=== PATIENT | male | born 1950 | race Hispanic/Latino ===

== ENCOUNTER 2018-05-10 05:53 | Observation (INO) | payer MEDICARE ==
[2018-05-06 13:11] LABS: BASOPHILS % (AUTO) 0.9 % (0.0-5.0); EOSINOPHILS % (AUTO) 5.4 % (0.0-8.0); HEMATOCRIT 38.1 % (42-54); LYMPHOCYTES % (AUTO) 25.2 % (21.0-51.0); MEAN CORPUSCULAR HEMOGLOBIN 28.4 pg (27.0-33.0); MEAN CORPUSCULAR HGB CONC 33.2 g/dL (32.0-36.0); MEAN CORPUSCULAR VOLUME 85.8 fL (79-99); MONOCYTES % (AUTO) 7.3 % (3.0-13.0); NEUTROPHILS % (AUTO) 61.2 % (40.0-77.0); NUCLEATED RED BLOOD CELLS 0.1 % (0.0-0.19); PLATELET COUNT (AUTO) 335 K/uL (130-400); RED BLOOD CELL COUNT(AUTO) 4.44 MIL/uL (4.50-6.20); RED CELL DISTRIBUTION WIDTH 14.5 % (11.0-15.5); WHITE BLOOD COUNT (AUTO) 8.9 K/uL (4.8-10.8)
[2018-05-06 13:25] LABS: INR 0.97 (0.85-1.15); PARTIAL THROMBOPLASTIN TIME 30.6 SEC (26.3-35.5); PROTHROMBIN TIME 10.2 SEC (9.6-11.6)
[2018-05-06 13:28] LABS: CREATININE 0.9 mg/dL (0.5-1.5); POTASSIUM 4.7 mmol/L (3.5-5.1)
[2018-05-06 14:02] LABS: APPEARANCE,URINE Clear (CLEAR); BILIRUBIN,URINE Small (NEGATIVE); COLOR,URINE Dark Yellow (YELLOW); GLUCOSE, URINE (UA) 500 mg/dL (NEGATIVE); KETONES,URINE Trace mg/dL (NEGATIVE); LEUKOCYTE ESTERASE ,URINE Negative (NEGATIVE); NITRATE,URINE Negative (NEGATIVE); OCCULT BLOOD,URINE Negative (NEGATIVE); PH,URINE 5.5 (5.0-8.0); PROTEIN,URINE POS 1+ (NEGATIVE)
[2018-05-06 14:33] LABS: BACTERIA,URINE Few /HPF (None Seen); MUCUS,URINE Moderate LPF (None Seen); RBC,URINE 0-1 /HPF (0-1); SQUAMOUS EPITHELIAL CELL,UR Rare /HPF (0-2); WBC,URINE 0-1 /HPF (0-1)
[2018-05-10] VITALS (13 sets, daily range): BP systolic 105–128; BP diastolic 56–70
[~2018-05-10] VITALS: Ht 162.6 cm; Wt 60.8 kg
[~2018-05-10 05:53] MED LIST: SODIUM CHLORIDE 0.9% 500ML 500 ML IV SCH
[2018-05-10] MEDS ORDERED: SODIUM CHLORIDE 0.9% 1000ML 1,000 ML IV ONE (06:04)
[2018-05-10] MEDS ORDERED: SIMV40TA5 PO (06:34)
[2018-05-10] MEDS ORDERED: TRAM50TA4 PO (06:34)
[2018-05-10] MEDS ORDERED: ASPI-555 PO (06:34)
[2018-05-10] MEDS ORDERED: METO25TA6 PO (06:34)
[2018-05-10] MEDS ORDERED: INS7030 SQ (06:34)
[2018-05-10] MEDS ORDERED: INSLAN SQ (06:34)
[2018-05-10] MEDS ORDERED: LISI2.5T2 PO (06:34)
[2018-05-10] MEDS ORDERED: CLOP75TA14 PO (06:34)
[2018-05-10] MEDS ORDERED: GABA-529 PO (06:34)
[2018-05-10] MEDS ORDERED: SODIUM BICARB 50MEQ 50ML VIAL ONE (07:09)
[2018-05-10] MEDS ORDERED: HEPARIN SODIUM 1000UNIT/ML 10ML VIAL ONE (07:09)
[2018-05-10] MEDS ORDERED: NITROGLYCERIN 5 MG/ML 10 ML VIAL IV ONE (07:09)
[2018-05-10] MEDS ORDERED: LIDOCAINE HCL-MPF 2% 5ML VIAL ONE (07:09)
[2018-05-10] MEDS ORDERED: IOHEXOL 350 MG/ML 100ML INFUS..BTL IV ONE (07:09)
[2018-05-10] MEDS ORDERED: IOHEXOL-350 50ML VIAL IV ONE (07:09)
--- NOTE | 2018-05-10 07:10 | NUR ---
HR PT DIDN'T BRING HOME MEDS OR LIFE VEST , METOPROLOL NOT TAKEN THIS AM, HR 98-120 THIS AM,FISH CURTIS INFORMED, NO FURTHER ORDERS GIVEN AT THIS TIME.
--- NOTE | 2018-05-10 07:20 | NUR ---
PROCEDURE PT TAKEN TO REPAIR ARMATURE WINDER FOR HEART CATH VIA BED, PT AWAKE AND ALERT, NO DISTRESS NOTED. PT SPOUSE AT BEDSIDE
[2018-05-10] MEDS ORDERED: MEPERIDINE-PF 25 MG/ML SYG ONE ×2 (07:26→07:47)
[2018-05-10] MEDS ORDERED: MIDAZOLAM HCL 1 MG/ML 2ML VIAL ONE ×2 (07:26→07:46)
[2018-05-10] MEDS: SODIUM CHLORIDE 0.9% 1000ML 1,000 ML IV SCH ×2 (08:27→22:15)
[2018-05-10] MEDS ORDERED: ACETAMINOPHEN 325 MG TAB PO PRN ×2 (08:30→20:30)
[2018-05-10] MEDS ORDERED: GLUCAGON 1MG KIT 1 MG ML IM PRN (08:30)
[2018-05-10] MEDS ORDERED: DEXTROSE 50%-WATER 50 ML DISP.SYRIN IV PRN (08:30)
--- NOTE | 2018-05-10 08:55 | NUR ---
PROCEDURE received pt from label maker, s/p left heart cath, mid RCA ptca /stent. right groin dressing dry and intact , see post label maker assessment. pt awake and alert in bed, vs stable on arrival , pt instructed to keep bedrest until instructed by nursing staff to get out of bed, to call nurse for any assistance needed. pt spouse at bedside at this time.
[2018-05-10] MEDS: INSULIN HUMULIN 70/30 100 UNIT/ML 3ML SQ SCH ×2 (09:00→21:00)
[2018-05-10] MEDS: INSULIN GLARGINE 100 UNITS/ML 10 ML VIAL SQ SCH (09:00)
[2018-05-10] MEDS: ASPIRIN 81 MG EC TAB PO SCH (09:59)
[2018-05-10] MEDS: INSULIN HUMULIN R 100 UNIT/ML 3ML SQ SCH ×3 (11:30→21:00)
[2018-05-10] MEDS: METOPROLOL TARTRATE 25 MG TAB PO SCH ×2 (12:09→21:00)
[2018-05-10] MEDS: LISINOPRIL 2.5 MG TABLET PO SCH (12:09)
[2018-05-10] MEDS: CLOPIDOGREL BISULFATE 75 MG TAB PO SCH (12:09)
--- NOTE | 2018-05-10 12:34 | NUR ---
report report given to Sarah Estrada at Telemetry floor,
--- NOTE | 2018-05-10 12:45 | NUR ---
transfer pt transfered to room 221 via bed, pt continues to be bedrest , right groin dressing dry and intact, pedal pulse present. all clothes , belongings also taken with patient. spouse at bedside escorted to room with patient. vs stable before transfer
[2018-05-10] MEDS: TRAMADOL HCL 50 MG TABLET PO PRN ×2 (14:04→23:01)
[2018-05-10] MEDS ORDERED: MORPHINE SULFATE 2 MG/ML 1ML SYG IV PRN (20:30)
[2018-05-10] MEDS ORDERED: ONDANSETRON HCL 4 MG/2 ML VIAL IV PRN (20:30)
[2018-05-10] MEDS ORDERED: GABAPENTIN 100 MG CAPSULE PO SCH (21:00)
[2018-05-10] MEDS ORDERED: SIMVASTATIN 20 MG TABLET PO SCH (21:00)
[2018-05-10 21:35] LABS: BASOPHILS % (AUTO) 0.9 % (0.0-5.0); EOSINOPHILS % (AUTO) 3.6 % (0.0-8.0); HEMATOCRIT 31.3 % (42-54); LYMPHOCYTES % (AUTO) 33.3 % (21.0-51.0); MEAN CORPUSCULAR HEMOGLOBIN 28.6 pg (27.0-33.0); MEAN CORPUSCULAR HGB CONC 33.5 g/dL (32.0-36.0); MEAN CORPUSCULAR VOLUME 85.3 fL (79-99); MONOCYTES % (AUTO) 8.2 % (3.0-13.0); PLATELET COUNT (AUTO) 263 K/uL (130-400); RED BLOOD CELL COUNT(AUTO) 3.66 MIL/uL (4.50-6.20); RED CELL DISTRIBUTION WIDTH 14.6 % (11.0-15.5); WHITE BLOOD COUNT (AUTO) 8.5 K/uL (4.8-10.8)
[2018-05-10 21:57] LABS: BILIRUBIN,TOTAL 0.3 mg/dL (0.2-1.0); CREATININE 0.8 mg/dL (0.5-1.5); POTASSIUM 4.1 mmol/L (3.5-5.1); TOTAL PROTEIN, SERUM 6.2 g/dL (6.0-8.3)
[2018-05-10] MEDS: FAMOTIDINE/PF 20 MG/2 ML VIAL IV SCH (22:07)
[2018-05-11 04:00] VITALS: BP 105/58
[2018-05-11] MEDS: INSULIN HUMULIN R 100 UNIT/ML 3ML SQ SCH (04:37)
[2018-05-11 04:56] LABS: HEMATOCRIT 31.3 % (42-54); MEAN CORPUSCULAR HEMOGLOBIN 29.5 pg (27.0-33.0); MEAN CORPUSCULAR HGB CONC 34.4 g/dL (32.0-36.0); MEAN CORPUSCULAR VOLUME 85.7 fL (79-99); PLATELET COUNT (AUTO) 282 K/uL (130-400); RED BLOOD CELL COUNT(AUTO) 3.65 MIL/uL (4.50-6.20); RED CELL DISTRIBUTION WIDTH 14.6 % (11.0-15.5); WHITE BLOOD COUNT (AUTO) 8.1 K/uL (4.8-10.8)
[2018-05-11 05:01] LABS: CREATININE 0.7 mg/dL (0.5-1.5); POTASSIUM 4.3 mmol/L (3.5-5.1)
[2018-05-11 07:28] VITALS: BP 112/69
[2018-05-11] MEDS: METOPROLOL TARTRATE 25 MG TAB PO SCH (07:44)
[2018-05-11] MEDS: CLOPIDOGREL BISULFATE 75 MG TAB PO SCH (07:44)
[2018-05-11] MEDS: ASPIRIN 81 MG EC TAB PO SCH (07:44)
[2018-05-11] MEDS: INSULIN GLARGINE 100 UNITS/ML 10 ML VIAL SQ SCH (07:45)
[2018-05-11] MEDS: LISINOPRIL 2.5 MG TABLET PO SCH (07:45)
[2018-05-11] MEDS: FAMOTIDINE/PF 20 MG/2 ML VIAL IV SCH (07:45)
[2018-05-11] MEDS: INSULIN HUMULIN 70/30 100 UNIT/ML 3ML SQ SCH (07:46)
--- NOTE | 2018-05-11 08:00 | NUR ---
ASSESSMENT PT IS AAOX4 DENIES CP DENIES SOB DENIES NV NO COMPLAINTS RIGHT GROIN WITH DRESSING PLACE, CLEAN DRY AND INTACT. AT BEDSIDE, AND ALSO EXITING ROOMS GOING INTO OTHER PATIENTS ROOMS. INSTRUCTED OF PATIENT TO GO BACK TO HUSBANDS ROOM. SAYS HIS HAS DEMENTIA.
--- NOTE | 2018-05-11 10:13 | NUR ---
DISCHARGE PATIENT VERBALIZES DC INSTRUCTIONS UNDERSTANDING AGREES TO TAKE MEDS ORDERED AND FOLLOW UP WITH DR REEVES OUTPATIENT. PIV REMOVED CATH TIP INTACT, TELE PACK REMOVED. ALL QUESTIONS ANSWERED.
== END 2018-05-11 10:30 | disposition home or self-care (01) ==
LOC: DAH 05:53 → DAHIP 05:54 → 2DH 13:01
PROVIDERS: ADMIT Internal Medicine; ATTEND Internal Medicine
DX: I25.110 Atherosclerotic heart disease of native coronary artery with unstable angina pectoris (principal); E11.40 Type 2 diabetes mellitus with diabetic neuropathy, unspecified; E11.59 Type 2 diabetes mellitus with other circulatory complications; E11.69 Type 2 diabetes mellitus with other specified complication; E78.2 Mixed hyperlipidemia; I11.9 Hypertensive heart disease without heart failure; I25.2 Old myocardial infarction; I25.3 Aneurysm of heart; I25.5 Ischemic cardiomyopathy; Z91.19 Patient's noncompliance with other medical treatment and regimen; Z79.4 Long term (current) use of insulin; Z83.3 Family history of diabetes mellitus; Z79.899 Other long term (current) drug therapy; Z98.49 Cataract extraction status, unspecified eye; Z79.01 Long term (current) use of anticoagulants
CPT/HCPCS: 36415 ×3; 71045; 80048 ×2; 80053; 81001; 82948 ×5; 85025 ×2; 85027; 85610; 85730; 93005; 93458; 96361 ×2; 96372; 96374; 96376; A4600; A4606; C1725; C1760; C1769; C1874; C1887; C1894; C9600; G0378 ×29; J1644 ×2; J1815; J2175 ×2; J2250 ×2; J3490 ×5; J7030 ×2; Q9965; Q9967 ×2; 99156; 99157

== ENCOUNTER → 2018-08-08 | Outpatient (CLI) | payer MEDICARE ==
[~2018-08-08] MED LIST changes: +ASPI-555 PO; +CLOP75TA14 PO; +GABA-529 PO; +INS7030 SQ; +INSLAN SQ; +LISI2.5T2 PO; +METO25TA6 PO; +SIMV40TA5 PO; -SODIUM CHLORIDE 0.9% 500ML 500 ML IV SCH; +TRAM50TA4 PO
== END | disposition home or self-care (01) ==
LOC: SHCH 11:15
PROVIDERS: ATTEND Internal Medicine Cardiovascular Disease
DX: I10 Essential (primary) hypertension (principal)
CPT/HCPCS: 93306

== ENCOUNTER 2018-09-14 08:11 | Observation (INO) | payer MEDICARE ==
[2018-09-13 11:10] VITALS: BP 107/57
[2018-09-13 11:36] LABS: BASOPHILS % (AUTO) 0.9 % (0.0-5.0); EOSINOPHILS % (AUTO) 1.9 % (0.0-8.0); HEMATOCRIT 35.6 % (42-54); LYMPHOCYTES % (AUTO) 28.1 % (21.0-51.0); MEAN CORPUSCULAR HEMOGLOBIN 29.2 pg (27.0-33.0); MEAN CORPUSCULAR HGB CONC 33.5 g/dL (32.0-36.0); MEAN CORPUSCULAR VOLUME 87.2 fL (79-99); NEUTROPHILS % (AUTO) 62.1 % (40.0-77.0); PLATELET COUNT (AUTO) 313 K/uL (130-400); RED BLOOD CELL COUNT(AUTO) 4.09 MIL/uL (4.50-6.20); RED CELL DISTRIBUTION WIDTH 13.5 % (11.0-15.5); WHITE BLOOD COUNT (AUTO) 8.2 K/uL (4.8-10.8)
[2018-09-13 11:43] LABS: INR 0.95 (0.85-1.15); PARTIAL THROMBOPLASTIN TIME 30.7 SEC (26.3-35.5)
[2018-09-13 11:50] LABS: POTASSIUM 4.9 mmol/L (3.5-5.1)
[2018-09-14] VITALS (10 sets, daily range): BP systolic 110–168; BP diastolic 56–112
[~2018-09-14] VITALS: Ht 162.6 cm; Wt 59.1 kg
[~2018-09-14 08:11] MED LIST changes: +NITROGLYCERIN 1GM/1 INCH PACKET TD SCH
--- NOTE | 2018-09-14 08:20 | NUR ---
INTEGUMENTARY MULTIPLE AREAS OF BRUISING TO UPPER EXTREMITIES FROM BLOOD THINNERS.
--- NOTE | 2018-09-14 08:20 | NUR ---
PRE-PROCEDURE RECEIVED FROM HOME VIA WALKING FOR SCHEDULED AICD PLACEMENT. AWAKE IN NO ACUTE DISTRESS, DENIES PAIN. CONNECTED TO CONTINUOUS CARDIOPULMONARY MONITORING. BED IN LOWEST POSITION, SIDE RAILS UP X2, CALL LIGHT W/IN REACH. PT IS ACCOMPANIED BY ( HAS DEMENTIA).
[2018-09-14] MEDS ORDERED: RIVA20TA PO (08:41)
[2018-09-14] MEDS: SODIUM CHLORIDE 0.9% 1000ML 1,000 ML IV SCH ×2 (10:07→17:07)
--- NOTE | 2018-09-14 14:30 | NUR ---
PROCEDURE PT TRANSFERRED TO LEGAL REFEREE BY MARYLIN DIAZ RN.
[2018-09-14] MEDS ORDERED: CEFAZOLIN SODIUM 1 GM VIAL ONE (14:46)
[2018-09-14] MEDS ORDERED: LIDOCAINE HCL 1% MDV 50ML VIAL ONE (14:47)
[2018-09-14] MEDS ORDERED: MIDAZOLAM HCL 1 MG/ML 2ML VIAL ONE ×3 (14:47→15:50)
[2018-09-14] MEDS ORDERED: MEPERIDINE-PF 25 MG/ML SYG ONE ×3 (14:47→15:51)
[2018-09-14] MEDS ORDERED: BUPIVACAINE/PF 0.25% 30ML VIAL IJ ONE (14:48)
[2018-09-14] MEDS ORDERED: OCTYL 2-CYANOACRYLATE 1 EACH TP ONE (15:23)
[2018-09-14] MEDS ORDERED: GLUCAGON 1MG KIT 1 MG ML IM PRN (16:15)
[2018-09-14] MEDS ORDERED: DEXTROSE 50%-WATER 50 ML DISP.SYRIN IV PRN (16:15)
[2018-09-14] MEDS: INSULIN HUMULIN R 100 UNIT/ML 3ML SQ SCH ×2 (16:30→20:36)
[2018-09-14] MEDS: ACETAMINOPHEN 325 MG TAB PO PRN ×2 (17:15→23:12)
[2018-09-14] MEDS ORDERED: KETOROLAC TROMETHAMINE 30MG/ML IV PRN (17:45)
--- NOTE | 2018-09-14 20:14 | NUR ---
ASSESSMENT PT RESTING IN BED. PT AAOX4. PT ORIENTED TO CALLBELL. LEFT ARM IN ARM SLING. ASSESSMENT COMPLETED, SEE FLOW SHEET. PT'S AT BEDSIDE REQUIRING 1:1, PT STATED THERE WAS NO ONE TO LOOK AFTER HIS
[2018-09-14] MEDS ORDERED: SIMVASTATIN 20 MG TABLET PO SCH (21:00)
[2018-09-14] MEDS: METOPROLOL TARTRATE 25 MG TAB PO SCH (21:51)
[2018-09-14] MEDS: INSULIN HUMULIN 70/30 100 UNIT/ML 3ML SQ SCH (21:56)
[2018-09-14] MEDS: CEFAZOLIN SODIUM 1 GM VIAL IVP SCH (23:13)
--- NOTE | 2018-09-14 23:49 | NUR ---
REPORT REPORT GIVEN TO ART RN.
[2018-09-15 04:00] VITALS: BP 118/62
[2018-09-15] MEDS: INSULIN HUMULIN R 100 UNIT/ML 3ML SQ SCH ×2 (05:48→11:06)
[2018-09-15] MEDS: CEFAZOLIN SODIUM 1 GM VIAL IVP SCH (05:48)
[2018-09-15 07:25] VITALS: BP 126/60
[2018-09-15] MEDS: METOPROLOL TARTRATE 25 MG TAB PO SCH (08:59)
[2018-09-15] MEDS ORDERED: INSULIN GLARGINE 100 UNITS/ML 10 ML VIAL SQ SCH (09:00)
[2018-09-15] MEDS ORDERED: LISINOPRIL 2.5 MG TABLET PO SCH (09:00)
[2018-09-15] MEDS ORDERED: CLOPIDOGREL BISULFATE 75 MG TAB PO SCH (09:00)
[2018-09-15] MEDS: INSULIN HUMULIN 70/30 100 UNIT/ML 3ML SQ SCH (09:00)
[2018-09-15] MEDS ORDERED: DOXY100C2 PO (09:08)
--- NOTE | 2018-09-15 10:30 | NUR ---
LOG CUT OFF [facility] FOR [facility] . On previous visits pt was offered services for thru [facility] (provider and Day Care). Pt refused everything offered. On one visit pt called brother in law and he came and picked up . Pt is aware of hospital liability for wive's presences but refuses to make arrangements for during his admissions..
[2018-09-15 11:00] VITALS: BP 117/56
== END 2018-09-15 12:15 | disposition home or self-care (01) ==
LOC: DAH 08:11 → DAHIP 08:12 → 2DH 17:07
PROVIDERS: ADMIT Internal Medicine; ATTEND Internal Medicine
DX: I25.5 Ischemic cardiomyopathy (principal); E11.9 Type 2 diabetes mellitus without complications; E78.5 Hyperlipidemia, unspecified; I11.0 Hypertensive heart disease with heart failure; I50.43 Acute on chronic combined systolic (congestive) and diastolic (congestive) heart failure; Z95.5 Presence of coronary angioplasty implant and graft; Z98.41 Cataract extraction status, right eye; Z98.42 Cataract extraction status, left eye; Z79.899 Other long term (current) drug therapy
CPT/HCPCS: 33249; 36415; 71046; 80048; 82948 ×6; 85025; 85610; 85730; 93005; 96372 ×2; 96374; 96375; A4606; C1721; C1894; C1895 ×2; G0378 ×20; J0690 ×3; J1815 ×2; J2175 ×3; J2250 ×3; J3490 ×2; J7030; J7070; 99156; 99157

== ENCOUNTER → 2019-07-20 | Outpatient (CLI) | payer MEDICARE ==
[~2019-07-20] MED LIST changes: -ASPI-555 PO; +DOXY100C2 PO; -GABA-529 PO; -NITROGLYCERIN 1GM/1 INCH PACKET TD SCH; +RIVA20TA PO; +SIMV-46 PO; -SIMV40TA5 PO; -TRAM50TA4 PO
== END | disposition home or self-care (01) ==
LOC: SHCH 08:30
PROVIDERS: ATTEND Internal Medicine Cardiovascular Disease
DX: I10 Essential (primary) hypertension (principal)
CPT/HCPCS: 93306

== ENCOUNTER 2022-07-14 08:47 | Emergency (ER) | payer MEDICARE ==
[~2022-07-14] VITALS: Ht 162.6 cm; Wt 68.0 kg
[~2022-07-14 08:47] MED LIST changes: +CLOP-31 PO; -CLOP75TA14 PO; -DOXY100C2 PO; +DOXY100C5 PO; +LISI2.5T13 PO; -LISI2.5T2 PO
[2022-07-14 08:52] VITALS: BP 167/77
[2022-07-14] MEDS ORDERED: HYDR25CA PO (09:15)
[2022-07-14] MEDS ORDERED: ELIM560C TP (09:15)
[2022-07-14] MEDS ORDERED: DEXAMETHASONE SOD PHOSPHATE 4 MG/ML 1ML VIAL IM ONE (09:30)
== END 2022-07-14 10:01 | disposition home or self-care (01) ==
LOC: EDH 08:47
DX: B86 Scabies (principal); R21 Rash and other nonspecific skin eruption; E11.9 Type 2 diabetes mellitus without complications; E78.00 Pure hypercholesterolemia, unspecified; I10 Essential (primary) hypertension; Z79.01 Long term (current) use of anticoagulants; Z79.4 Long term (current) use of insulin; Z79.899 Other long term (current) drug therapy; Z95.5 Presence of coronary angioplasty implant and graft; Z95.810 Presence of automatic (implantable) cardiac defibrillator
CPT/HCPCS: 99283; 96372; J1100

== ENCOUNTER 2022-09-01 09:00 | Emergency (ER) | payer MEDICARE ==
[~2022-09-01] VITALS: Ht 162.6 cm; Wt 68.0 kg
[~2022-09-01 09:00] MED LIST changes: +ELIM560C TP; +HYDR25CA PO
[2022-09-01] MEDS ORDERED: DEXAMETHASONE SOD PHOSPHATE 4 MG/ML 1ML VIAL IVP ONE (09:30)
[2022-09-01] MEDS ORDERED: DiphenhydrAMINE HCL 50 MG/ML VIAL IV ONE (09:30)
[2022-09-01] MEDS ORDERED: FAMOTIDINE 20MG VIAL IV ONE (09:30)
[2022-09-01] MEDS ORDERED: 0.9%NACL 1000ML 1,000 ML IV ONE (09:30)
[2022-09-01 09:48] LABS: BASOPHILS % (AUTO) 0.3 % (0.0-5.0); EOSINOPHILS % (AUTO) 6.6 % (0.0-8.0); HEMATOCRIT 34.6 % (42-54); LYMPHOCYTES % (AUTO) 23.1 % (21.0-51.0); MEAN CORPUSCULAR HEMOGLOBIN 28.6 pg (27.0-33.0); MEAN CORPUSCULAR HGB CONC 32.9 g/dL (32.0-36.0); MEAN CORPUSCULAR VOLUME 86.9 fL (79-99); MONOCYTES % (AUTO) 6.9 % (3.0-13.0); NEUTROPHILS % (AUTO) 62.9 % (40.0-77.0); PLATELET COUNT (AUTO) 264 K/uL (130-400); RED BLOOD CELL COUNT(AUTO) 3.98 MIL/uL (4.50-6.20); WHITE BLOOD COUNT (AUTO) 8.6 K/uL (4.8-10.8)
[2022-09-01 10:04] LABS: ALBUMIN 3.4 g/dL (3.5-5.0); CREATININE 1.1 mg/dL (0.5-1.5); POTASSIUM 4.1 mmol/L (3.5-5.1); TOTAL PROTEIN, SERUM 7.3 g/dL (6.0-8.3)
[2022-09-01] MEDS ORDERED: IOHEXOL-350 75 ML VIAL IV ONE (10:10)
[2022-09-01 11:07] VITALS: BP 166/65
[2022-09-01] MEDS ORDERED: CETI10TA57 PO ×2 (11:22→11:31)
[2022-09-01] MEDS ORDERED: FAMO20TA8 PO (11:22)
[2022-09-01] MEDS ORDERED: PRED50TA2 PO ×2 (11:22→11:31)
== END 2022-09-01 11:30 | disposition home or self-care (01) ==
LOC: EDH 09:00
DX: L29.9 Pruritus, unspecified (principal); R21 Rash and other nonspecific skin eruption; R10.9 Unspecified abdominal pain; I10 Essential (primary) hypertension; E11.9 Type 2 diabetes mellitus without complications; E78.00 Pure hypercholesterolemia, unspecified; Z20.822 Contact with and (suspected) exposure to COVID-19; Z79.52 Long term (current) use of systemic steroids; Z79.899 Other long term (current) drug therapy; Z95.5 Presence of coronary angioplasty implant and graft; Z95.810 Presence of automatic (implantable) cardiac defibrillator
CPT/HCPCS: 99285; 80053; 85025; 87880; 87804 ×2; 83605; 36415; 87635; 74177; 96374; 96361; 96375; J1100; C9803; J1200; J3490; J7030; Q9967

== ENCOUNTER 2023-10-13 11:04 | Emergency (ER) | payer MEDICARE ==
[~2023-10-13] VITALS: Ht 162.6 cm; Wt 68.0 kg
[~2023-10-13 11:04] MED LIST changes: +CETI10TA57 PO; +FAMO20TA8 PO; +PRED50TA2 PO
[2023-10-13 14:23] LABS: APPEARANCE,URINE TURBID (CLEAR); BILIRUBIN,URINE NEGATIVE (NEGATIVE); GLUCOSE, URINE (UA) >=1000 mg/dL (NEGATIVE); KETONES,URINE NEGATIVE (NEGATIVE); LEUKOCYTE ESTERASE ,URINE TRACE Leu/uL (NEGATIVE); NITRATE,URINE NEGATIVE (NEGATIVE); OCCULT BLOOD,URINE LARGE (NEGATIVE); PROTEIN,URINE 100 mg/dL (NEGATIVE); UROBILINOGEN,URINE 0.2 mg/dL (0.2-1.0)
[2023-10-13 14:31] LABS: ADD UA MICROSCOPIC YES; COLOR,URINE RED (YELLOW)
[2023-10-13 14:41] LABS: RBC,URINE TNTC /HPF (0-1)
[2023-10-13 14:42] LABS: BACTERIA,URINE Few /HPF (None Seen); SQUAMOUS EPITHELIAL CELL,UR Few /HPF (0-2); WBC,URINE 26-50 /HPF (0-1)
[2023-10-13] MEDS ORDERED: AMOX1TAB16 PO (15:07)
[2023-10-13] MEDS: AMOX/CLAV 875/125MG TAB PO ONE (15:39)
[2023-10-13 15:40] VITALS: BP 148/70; PULSE 80; RESP 18; O2SAT 98
== END 2023-10-13 15:47 | disposition home or self-care (01) ==
LOC: EDH 11:04
DX: N30.01 Acute cystitis with hematuria (principal); I10 Essential (primary) hypertension; E11.9 Type 2 diabetes mellitus without complications; E78.00 Pure hypercholesterolemia, unspecified; Z79.899 Other long term (current) drug therapy; Z95.5 Presence of coronary angioplasty implant and graft; Z98.890 Other specified postprocedural states
CPT/HCPCS: 81001; 87086; 87186

== ENCOUNTER 2023-11-03 21:07 | Emergency (ER) | payer MEDICARE ==
[~2023-11-03] VITALS: Ht 162.6 cm; Wt 67.6 kg
[~2023-11-03 21:07] MED LIST changes: +AMOX1TAB16 PO
[2023-11-03] MEDS ORDERED: IVER3 PO (21:31)
[2023-11-03] MEDS ORDERED: DIPH50CA37 PO (21:33)
[2023-11-03 21:51] VITALS: BP 139/53; PULSE 89; RESP 18; O2SAT 98
== END 2023-11-03 21:50 | disposition home or self-care (01) ==
LOC: EDH 21:07
DX: B86 Scabies (principal); E11.9 Type 2 diabetes mellitus without complications; E78.00 Pure hypercholesterolemia, unspecified; I10 Essential (primary) hypertension; Z79.899 Other long term (current) drug therapy; Z98.890 Other specified postprocedural states

== ENCOUNTER → 2024-05-17 | Outpatient (CLI) | payer MEDICARE ==
[~2024-05-17] MED LIST changes: +DIPH50CA37 PO; +IVER3 PO
--- NOTE | 2024-05-22 09:46 | HMCSR ---
APPROVED REPORT Bilateral Lower Extremity Venous Study for Venous Competence., DVT. Indications pvd Vein Imaging CFV (R): Normal flow, augmentation and compression. No evidence of DVT. 9.4mm 0.0ms of reflux. SFJ (R): Normal flow, augmentation and compression. No evidence of DVT. FEM (R): Normal flow, augmentation and compression. No evidence of DVT. POP (R): Normal flow, augmentation and compression. No evidence of DVT. DFV (R): Normal flow, augmentation and compression. No evidence of DVT. PTV (R): Normal flow, augmentation and compression. No evidence of DVT. Peroneals (R): Normal flow, augmentation and compression. No evidence of DVT. CFV (L): Normal flow, augmentation and compression. No evidence of DVT. 7.5mm 906ms of reflux. SFJ (L): Normal flow, augmentation and compression. No evidence of DVT. FEM (L): Normal flow, augmentation and compression. No evidence of DVT. POP (L): Normal flow, augmentation and compression. No evidence of DVT. DFV (L): Normal flow, augmentation and compression. No evidence of DVT. PTV (L): Normal flow, augmentation and compression. No evidence of DVT. GSV (L): Peroneals (L): Normal flow, augmentation and compression. No evidence of DVT. Technologist Impression Deep veins of bilateral lower extrimities appear patent and compressible without thrombus. No deep vein reflux seen RGSV And LGSV venous insufficienty seen. RGSV Junction 3.4mm 1567ms thigh 3.0mm 0.0ms knee 2.9mm 583ms calf 2.5mm 0.0ms RSSV prox 1.5mm 0.0ms Mid 1.4mm 211ms LGSV Junction 4.1mm 0.0ms thigh 1.8mm 0.0ms knee 1.4mm 233ms calf 1.5mm 728ms LSSV Prox 2.2mm 0.0ms Mid 0.6mm 0.0ms Conclusion Deep veins of bilateral lower extrimities appear patent and compressible without thrombus. No deep vein reflux seen RGSV And LGSV venous insufficienty seen. Conclusion Deep veins of bilateral lower extrimities appear patent and compressible without thrombus. No deep vein reflux seen RGSV And LGSV venous insufficienty seen.
--- NOTE | 2024-05-22 09:53 | HMCSR ---
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 (R) 78.7cm/sec, Biphasic, Prof Fem Art. (L) 118.7cm/sec, Biphasic, Fem Art Prox. (R) 123.9cm/sec, Biphasic, Fem Art Prox. (L) 128.4cm/sec, Biphasic, Fem Art Mid. (R) 139.4cm/sec, Biphasic, Fem Art Mid. (L) 156.6cm/sec, Biphasic, Fem Art Dist (R) 142.2cm/sec, Biphasic, Fem Art Dist. (L) 106.5cm/sec, Biphasic, Pop Art(AK) (R) 128.4cm/sec, Biphasic, Pop Art (AK) (L) 122.7cm/sec, Biphasic, Pop Art (Fossa)(R) 80.8cm/sec, Biphasic, Pop Art (Fossa) (L) 127.0cm/sec, Biphasic, Pop Art(BK) (R) 110.0cm/sec, Biphasic, Pop Art (BK) (L) 172.9cm/sec, Biphasic, MAGENTO WEB DEVELOPER Mid. (R) 52.2cm/sec, Biphasic, MAGENTO WEB DEVELOPER Prox. (L) 110.0cm/sec, Monophasic, MAGENTO WEB DEVELOPER Dist. (R) 40.9cm/sec, Biphasic, MAGENTO WEB DEVELOPER Mid. (L) 101.4cm/sec, Monophasic, Per Art Prox. (R) 15.1cm/sec, Monophasic, MAGENTO WEB DEVELOPER Dist. (L) 99.5cm/sec, Monophasic, Per Art Mid. (R) 14.1cm/sec, Monophasic, Per Art Prox. (L) 31.1cm/sec, Monophasic, Per Art Dist. (R) 17.9cm/sec, Monophasic, Per Art Mid. (L) 31.1cm/sec, Monophasic, FELIX Prox. (R) 143.6cm/sec, Biphasic, Per Art Dist. (L) 31.1cm/sec, Monophasic, FELIX Mid. (R) 104.4cm/sec, Biphasic FELIX Prox. (L) 84.0cm/sec, Monophasic, FELIX Dist. (R) 164.8cm/sec, Monophasic, FELIX Mid. (L) 120.1cm/sec, Monophasic, FELIX Dist. (L) 70.0cm/sec, Monophasic, Technologist Impression Bilateral infra popliteal Disease. Conclusion Bilateral infra popliteal Disease. Conclusion Bilateral infra popliteal Disease.
== END | disposition home or self-care (01) ==
LOC: SHCH 13:08
PROVIDERS: ATTEND Internal Medicine Cardiovascular Disease
DX: I87.2 Venous insufficiency (chronic) (peripheral) (principal); I73.9 Peripheral vascular disease, unspecified; I87.1 Compression of vein
CPT/HCPCS: 93925; 93970